=== PATIENT | male | born 1975 ===

== ENCOUNTER 2019-05-28 18:58 | Inpatient (IN) | payer MEDICAID ==
[~2019-05-28] VITALS: Ht 182.9 cm; Wt 90.2 kg
[2019-05-28] MEDS ORDERED: SODIUM CHLORIDE 0.9% 1,000 ML IV ONE ×2 (19:30→21:30)
[2019-05-28 19:44] LABS: BASOPHILS % (AUTO) 0.8 % (0.0-2.0); EOSINOPHILS % (AUTO) 0.6 % (1.0-6.0); HEMATOCRIT 45.3 % (41-53); HEMOGLOBIN 15.4 g/dL (13.5-17.5); LYMPHOCYTES # (AUTO) 3.4 K/uL (1.0-4.8); LYMPHOCYTES % (AUTO) 36.8 % (22.0-44.0); MEAN CORPUSCULAR HEMOGLOBIN 33.2 pg (26.0-34.0); MEAN CORPUSCULAR VOLUME 98 fL (80-100); MONOCYTES # (AUTO) 0.7 K/uL (0.1-1.0); MONOCYTES % (AUTO) 7.9 % (2.0-9.0); NEUTROPHILS % (AUTO) 53.9 % (40.0-70.0); PLATELET COUNT (AUTO) 237 K/uL (150-450); RED BLOOD CELL COUNT(AUTO) 4.64 MIL/uL (4.50-5.90)
[2019-05-28] MEDS ORDERED: LEVE10006 PO (19:44)
[2019-05-28] MEDS ORDERED: TOPI25 PO (19:44)
[2019-05-28 19:59] LABS: ANION GAP 8 mmol/L (8-16); CALCIUM, TOTAL 8.8 mg/dL (8.8-10.5); CARBON DIOXIDE 32 mmol/L (22-29); CHLORIDE 105 mmol/L (98-107); CREATININE 0.83 mg/dL (0.60-1.30); GLOMERULAR FILTR. RATE CALC > 60 mL/min (>60); GLUCOSE,RANDOM 96 mg/dL (70-110); POTASSIUM 4.1 mmol/L (3.5-5.1); SODIUM SERUM 145 mmol/L (136-145); UREA NITROGEN, BLOOD 15 mg/dL (7-18)
[2019-05-28 20:05] LABS: ALANINE AMINOTRANSFERASE 121 U/L (12-78); ALBUMIN 3.6 g/dL (3.4-5.0); ALKALINE PHOSPHATASE 97 U/L (46-116); ASPARTATE AMINOTRANSFERASE 73 U/L (15-37); BILIRUBIN,TOTAL 0.3 mg/dL (0.1-1.0); TOTAL PROTEIN, SERUM 7.5 g/dL (6.4-8.2)
[2019-05-28] MEDS ORDERED: MAGNESIUM SULFATE 2 GM, MVI, ADULT NO.1 WITH VIT K 10 ML, THIAMINE HCL 100 MG, FOLIC AC... IV ONE ×5 (21:15)
[2019-05-28] MEDS ORDERED: MAGNESIUM OXIDE 400 MG TABLET PO PRN (21:30)
[2019-05-28] MEDS ORDERED: MAGNESIUM SULFATE 2 GM/WATER 50 ML IV PRN (21:30)
[2019-05-28] MEDS ORDERED: MAGNESIUM SULFATE 4 GM/WATER 100 ML IV PRN (21:30)
[2019-05-28] MEDS ORDERED: ONDANSETRON HCL 4 MG/2 ML VIAL IVP PRN (21:30)
[2019-05-29] MEDS: DOCUSATE SODIUM 100 MG CAPSULE PO SCH ×2 (08:55→20:05)
[2019-05-29] MEDS: FAMOTIDINE 20 MG TABLET PO SCH ×2 (08:55→20:05)
[2019-05-29] MEDS: MULTIVITAMINS WITH MINERALS, THERAPEUTIC TABLET PO SCH (12:03)
[2019-05-29 16:06] VITALS: BP 151/88
[2019-05-29] MEDS: LORazepam 2 MG/ML VIAL IVP PRN ×2 (16:28→20:05)
[2019-05-29] MEDS ORDERED: INFLUENZA VIRUS VACCINE QVS 2019-20 (3YR+)/PF 60 MCG/0.5 ML SYRINGE IM ONE (18:30)
[2019-05-29 19:44] VITALS: BP 143/89
[2019-05-30] VITALS (7 sets, daily range): BP systolic 123–142; BP diastolic 65–92
[2019-05-30] MEDS: MULTIVITAMINS WITH MINERALS, THERAPEUTIC TABLET PO SCH (07:32)
[2019-05-30] MEDS: DOCUSATE SODIUM 100 MG CAPSULE PO SCH ×2 (07:32→20:29)
[2019-05-30] MEDS: ACETAMINOPHEN 325 MG TABLET PO PRN (07:32)
[2019-05-30] MEDS: FAMOTIDINE 20 MG TABLET PO SCH ×2 (07:32→20:27)
[2019-05-30] MEDS: LORazepam 2 MG/ML VIAL IVP PRN (13:54)
[2019-05-30] MEDS: LevETIRAcetam 500 MG TABLET PO SCH ×2 (13:54→20:26)
[2019-05-30] MEDS: ChlordiazePOXIDE HCL 10 MG CAPSULE PO SCH (17:15)
[2019-05-31] VITALS (7 sets, daily range): BP systolic 108–129; BP diastolic 79–88
[2019-05-31] MEDS: ChlordiazePOXIDE HCL 10 MG CAPSULE PO SCH ×4 (00:14→23:06)
[2019-05-31] MEDS: ACETAMINOPHEN 325 MG TABLET PO PRN (05:43)
[2019-05-31 06:18] LABS: HEMATOCRIT 45.3 % (41-53); HEMOGLOBIN 15.2 g/dL (13.5-17.5); MEAN CORPUSCULAR HEMOGLOBIN 32.9 pg (26.0-34.0); MEAN CORPUSCULAR HGB CONC 33.5 G/dL (31.0-37.0); MEAN CORPUSCULAR VOLUME 98 fL (80-100); RED BLOOD CELL COUNT(AUTO) 4.62 MIL/uL (4.50-5.90)
[2019-05-31 06:19] LABS: BASOPHILS % (AUTO) 0.9 % (0.0-2.0); EOSINOPHILS % (AUTO) 3.3 % (1.0-6.0); LYMPHOCYTES # (AUTO) 1.3 K/uL (1.0-4.8); LYMPHOCYTES % (AUTO) 22.2 % (22.0-44.0); MONOCYTES # (AUTO) 0.5 K/uL (0.1-1.0); MONOCYTES % (AUTO) 9.1 % (2.0-9.0); NEUTROPHILS # (AUTO) 3.7 K/uL (1.8-7.7); NEUTROPHILS % (AUTO) 64.5 % (40.0-70.0); PLATELET COUNT (AUTO) 176 K/uL (150-450); RED CELL DISTRIBUTION WIDTH 14.4 % (11.5-14.5)
[2019-05-31 06:28] LABS: ALKALINE PHOSPHATASE 69 U/L (46-116); ANION GAP 4 mmol/L (8-16); ASPARTATE AMINOTRANSFERASE 110 U/L (15-37); BILIRUBIN,TOTAL 1.1 mg/dL (0.1-1.0); CALCIUM, TOTAL 8.9 mg/dL (8.8-10.5); CARBON DIOXIDE 30 mmol/L (22-29); CHLORIDE 104 mmol/L (98-107); CREATININE 0.76 mg/dL (0.60-1.30); GLOMERULAR FILTR. RATE CALC > 60 mL/min (>60); GLUCOSE,RANDOM 89 mg/dL (70-110); POTASSIUM 4.2 mmol/L (3.5-5.1); SODIUM SERUM 138 mmol/L (136-145); UREA NITROGEN, BLOOD 9 mg/dL (7-18)
[2019-05-31 06:29] LABS: ALANINE AMINOTRANSFERASE 133 U/L (12-78); TOTAL PROTEIN, SERUM 6.8 g/dL (6.4-8.2)
[2019-05-31] MEDS: LevETIRAcetam 500 MG TABLET PO SCH ×2 (08:04→21:35)
[2019-05-31] MEDS: FAMOTIDINE 20 MG TABLET PO SCH ×2 (08:04→21:35)
[2019-05-31] MEDS: MULTIVITAMINS WITH MINERALS, THERAPEUTIC TABLET PO SCH (08:04)
[2019-05-31] MEDS: DOCUSATE SODIUM 100 MG CAPSULE PO SCH ×2 (08:07→21:33)
[2019-05-31] MEDS ORDERED: ZOLPIDEM TARTRATE 10 MG TABLET PO PRN (20:45)
[2019-05-31] MEDS ORDERED: OxyCODONE HCL/ACETAMINOPHEN 10-325 MG TABLET PO PRN (20:45)
[2019-06-01 04:54] VITALS: BP 117/72
[2019-06-01 08:07] LABS: PROTHROMBIN TIME 10.2 SEC (9.4-11.6)
[2019-06-01 08:12] VITALS: BP 121/68
[2019-06-01 08:16] VITALS: BP 121/68
[2019-06-01 08:20] LABS: ALANINE AMINOTRANSFERASE 158 U/L (12-78); ALBUMIN 3.1 g/dL (3.4-5.0); ALKALINE PHOSPHATASE 76 U/L (46-116); ANION GAP 6 mmol/L (8-16); ASPARTATE AMINOTRANSFERASE 101 U/L (15-37); BILIRUBIN,TOTAL 0.9 mg/dL (0.1-1.0); CALCIUM, TOTAL 8.9 mg/dL (8.8-10.5); CARBON DIOXIDE 30 mmol/L (22-29); CHLORIDE 102 mmol/L (98-107); CREATININE 0.88 mg/dL (0.60-1.30); GLOMERULAR FILTR. RATE CALC > 60 mL/min (>60); GLUCOSE,RANDOM 83 mg/dL (70-110); POTASSIUM 4.1 mmol/L (3.5-5.1); SODIUM SERUM 138 mmol/L (136-145); UREA NITROGEN, BLOOD 18 mg/dL (7-18)
[2019-06-01] MEDS: FAMOTIDINE 20 MG TABLET PO SCH (08:48)
[2019-06-01] MEDS: DOCUSATE SODIUM 100 MG CAPSULE PO SCH (08:49)
[2019-06-01] MEDS: MULTIVITAMINS WITH MINERALS, THERAPEUTIC TABLET PO SCH (08:49)
[2019-06-01] MEDS: LevETIRAcetam 500 MG TABLET PO SCH (08:49)
[2019-06-01] MEDS: ChlordiazePOXIDE HCL 10 MG CAPSULE PO SCH (08:49)
[2019-06-01 11:27] VITALS: BP 116/78
== END 2019-06-01 15:30 | disposition home or self-care (01) | DRG 280 ==
LOC: EMS 18:59 → 4E 05-29 17:21 → 5S 05-31 11:49
PROVIDERS: ADMIT Internal Medicine; ATTEND Internal Medicine
DX: K70.30 Alcoholic cirrhosis of liver without ascites (principal); G92 Toxic encephalopathy; E44.0 Moderate protein-calorie malnutrition; G40.909 Epilepsy, unspecified, not intractable, without status epilepticus; K76.0 Fatty (change of) liver, not elsewhere classified; Y90.8 Blood alcohol level of 240 mg/100 ml or more; F10.129 Alcohol abuse with intoxication, unspecified; Z68.27 Body mass index [BMI] 27.0-27.9, adult
CPT/HCPCS: 76700; 83735; G0378; G0480; J2060; J3411; J3475; J3490; J7030